=== PATIENT | female | born 1960 | race Asian ===

== ENCOUNTER 2023-11-09 01:03 | Emergency (ER) | payer OTHER ==
[~2023-11-09] VITALS: Ht 160 cm; Wt 60.8 kg
[2023-11-09 01:12] VITALS: BP 148/76; PULSE 63; RESP 16; TEMP 97.7; O2SAT 97
[2023-11-09 01:24] VITALS: BP 148/76; PULSE 63; RESP 16; TEMP 97.7; O2SAT 97
== END 2023-11-09 01:24 | disposition left against medical advice (07) ==
LOC: MED 01:03
DX: I10 Essential (primary) hypertension (principal); Z53.21 Procedure and treatment not carried out due to patient leaving prior to being seen by health care provider